=== PATIENT | female | born 1990 | race Caucasian/White ===

== ENCOUNTER 2017-09-05 14:38 | Emergency (ER) | payer OTHER ==
[2017-09-05] MEDS: RABIES VACCINE HUMAN 2.5 INTERNATIONAL UNITS/ML VIAL (90675) IM (15:13)
== END 2017-09-05 15:45 | disposition home or self-care (01) ==
LOC: M ED 14:38
DX: Z20.3 Contact with and (suspected) exposure to rabies (principal); W55.01XD Bitten by cat, subsequent encounter; Y92.830 Public park as the place of occurrence of the external cause; Y99.8 Other external cause status
CPT/HCPCS: 90471

== ENCOUNTER 2021-02-16 20:17 | Emergency (ER) | payer OTHER ==
[~2021-02-16] VITALS: Ht 172.7 cm; Wt 118.0 kg
[2021-02-16] MEDS ORDERED: CEFD1CAP8 PO (20:24)
[2021-02-17] MEDS ORDERED: LIDOCAINE 4% CREAM 5GM (LMX4) TOP ONE (00:40)
[2021-02-17] MEDS ORDERED: NAPROXEN 250 MG TAB PO ONE (00:40)
[2021-02-17 01:25] LABS: BASO % 0.4 % (0.0-1.0); EOS # 0.2 10^3/uL (0.0-0.5); EOS % 2.3 % (0.0-3.0); HEMATOCRIT 39.7 % (36.0-47.0); HEMOGLOBIN 12.7 g/dl (12.0-15.5); LYMPH # 1.9 10^3/uL (1.5-5.0); LYMPH % 26.7 % (24.0-44.0); MEAN CORPUSCULAR HEMOGLOBIN 27.5 pg (27.0-33.0); MEAN CORPUSCULAR VOLUME 86.1 fl (80.0-96.0); MONO # 0.7 10^3/uL (0.0-0.8); MONO % 9.7 % (2.0-8.0); NEUTROPHILS # 4.3 10^3/uL (1.5-8.5); NEUTROPHILS % 60.6 % (36.0-66.0); PLATELET COUNT, AUTOMATED 327 10^3/uL (150-450); RED BLOOD COUNT 4.61 10^6/uL (4.00-5.40)
[2021-02-17 01:36] LABS: INR 0.9; PARTIAL THROMBOPLASTIN TIME 28.6 SECONDS (24.2-38.5); PROTHROMBIN TIME 12.3 SECONDS (12.5-14.3)
[2021-02-17] MEDS ORDERED: NAPR-837 PO (02:13)
[2021-02-17] MEDS ORDERED: VOLT1GEL15 TOP (02:13)
[2021-02-17 02:31] VITALS: BP 128/79
--- NOTE | 2021-02-17 12:32 | REP ---
INDICATION: redness, swelling proximal to IV site x 3 days, DC yesterday. COMPARISON: None. TECHNIQUE: Multiple ultrasonographic images of the deep venous structures of the left upper extremity were obtained to rule out deep venous thrombosis. The contralateral subclavian vein was also interrogated in a limited fashion for comparison. FINDINGS: Preliminary report was given by Byron vega at the time the examination was performed. There is no abnormal echogenic material seen in any of the visualized deep venous structures of the left upper extremity. Coaptation where applicable is appropriate throughout. There is evidence of echogenic material in 1 of the superficial veins notably the cephalic vein. IMPRESSION: Left cephalic vein thrombus not considered part of the deep venous system of the upper extremity. <Electronically signed by Shai Love > 02/17/21 1965
== END 2021-02-17 02:35 | disposition home or self-care (01) ==
LOC: M ED 20:17
DX: I82.612 Acute embolism and thrombosis of superficial veins of left upper extremity (principal); Z79.899 Other long term (current) drug therapy

== ENCOUNTER → 2021-08-25 | Outpatient (REF) | payer OTHER ==
[~2021-08-25] MED LIST: CEFD1CAP8 PO; NAPR-837 PO; VOLT1GEL15 TOP
== END ==
LOC: M SFHCPLAZ 13:09
PROVIDERS: ATTEND Nurse Practitioner Adult Health
DX: R30.0 Dysuria (principal)

== ENCOUNTER → 2022-01-28 | Outpatient (CLI) | payer OTHER ==
[~2022-01-28] MED LIST changes: -CEFD1CAP8 PO; +CEFD300C41 PO; +E-Z-PAQUE 96% w/w SUSP 176GM BTL As Ordered ONE
== END ==
LOC: M RAD 08:48
PROVIDERS: ATTEND Nurse Practitioner Family
DX: K50.90 Crohn's disease, unspecified, without complications (principal)

== ENCOUNTER 2022-03-30 05:06 | Emergency (ER) | payer OTHER ==
[~2022-03-30] VITALS: Ht 172.7 cm; Wt 122.7 kg
[~2022-03-30 05:06] MED LIST changes: -E-Z-PAQUE 96% w/w SUSP 176GM BTL As Ordered ONE
[2022-03-30 05:07] VITALS: BP 143/92
[2022-03-30] MEDS ORDERED: HUMI40KI SC (05:12)
[2022-03-30] MEDS ORDERED: PANT40TA29 PO (05:12)
[2022-03-30] MEDS ORDERED: MORPHINE 4 MG/ML 1ML VIAL/SYRINGE IV ONE ×2 (07:15→09:55)
[2022-03-30] MEDS ORDERED: NS 1,000 ML IV ONE (07:15)
[2022-03-30] MEDS ORDERED: ONDANSETRON 4MG 2ML VIAL IV ONE (07:15)
[2022-03-30 08:19] LABS: BASO % 0.2 % (0.0-1.0); HEMATOCRIT 42.4 % (36.0-47.0); HEMOGLOBIN 13.7 g/dl (12.0-15.5); LYMPH # 0.8 10^3/uL (1.5-5.0); LYMPH % 6.8 % (24.0-44.0); MEAN CORPUSCULAR HEMOGLOBIN 27.3 pg (27.0-33.0); MEAN CORPUSCULAR HGB CONC 32.3 g/dl (32.0-36.5); MEAN CORPUSCULAR VOLUME 84.6 fl (80.0-96.0); MONO # 0.3 10^3/uL (0.0-0.8); MONO % 2.8 % (2.0-8.0); NEUTROPHILS # 10.1 10^3/uL (1.5-8.5); PLATELET COUNT, AUTOMATED 326 10^3/uL (150-450); RED BLOOD COUNT 5.01 10^6/uL (4.00-5.40); WHITE BLOOD COUNT 11.2 10^3/uL (4.0-10.0)
[2022-03-30 08:46] LABS: ALBUMIN 4.5 GM/DL (3.2-5.2); ALT/SGPT 30 U/L (12-78); BILIRUBIN,DIRECT 0.1 MG/DL (0.0-0.2); BILIRUBIN,TOTAL 0.6 MG/DL (0.2-1.0); BLOOD UREA NITROGEN 13 MG/DL (7-18); C REACTIVE PROTEIN QUANTITATIV 0.33 MG/DL (0.00-0.30); CALCIUM LEVEL 9.7 MG/DL (8.5-10.1); CARBON DIOXIDE LEVEL 24 MEQ/L (21-32); CHLORIDE LEVEL 106 MEQ/L (98-107); CREATININE FOR GFR 0.89 MG/DL (0.55-1.30); GLOMERULAR FILTRATION RATE > 60.0 (>60); GLUCOSE, FASTING 144 MG/DL (70-100); LIPASE 133 U/L (73-393); POTASSIUM SERUM 4.8 MEQ/L (3.5-5.1); SODIUM LEVEL 138 MEQ/L (136-145); TOTAL PROTEIN 8.3 GM/DL (6.4-8.2)
[2022-03-30] MEDS ORDERED: ISOVUE-370 76% 100ML VIAL As Ordered ONE (08:46)
[2022-03-30 09:19] LABS: ERYTHROCYTE SEDIMENTATION RATE 11 mm/hr (0-20)
[2022-03-30] MEDS ORDERED: ONDA4TAB6 PO (11:08)
[2022-03-30] MEDS ORDERED: HYDR-3713 PO (11:08)
== END 2022-03-30 11:30 | disposition home or self-care (01) ==
LOC: M ED 05:06
DX: K52.9 Noninfective gastroenteritis and colitis, unspecified (principal); K50.90 Crohn's disease, unspecified, without complications; Z79.899 Other long term (current) drug therapy
CPT/HCPCS: 74177; 80047; 80048; 80076; 83605; 83690; 84702; 85025; 85652; 86140; 96361; 96374; 96375; 96376; 99283; J2270; J2405; Q9967

== ENCOUNTER → 2022-04-15 | Outpatient (CLI) | payer OTHER ==
[~2022-04-15] MED LIST changes: +HUMI40KI SC; +HYDR-3713 PO; +ONDA4TAB6 PO; +PANT40TA29 PO
[2022-04-15 21:17] LABS: MAGNESIUM LEVEL 2.1 MG/DL (1.8-2.4)
[2022-04-15 21:43] LABS: TOTAL 25(OH) VITAMIN D 20.6 NG/ML (30.0-100.0)
== END ==
LOC: M PLALAB 10:19
PROVIDERS: ATTEND Internal Medicine Gastroenterology
DX: K50.90 Crohn's disease, unspecified, without complications (principal)